=== PATIENT | female | born 1985 | race Caucasian/White ===

== ENCOUNTER 2018-08-02 10:38 | Observation (INO) | payer BC ==
[2018-08-02] MEDS ORDERED: ONDANSETRON 4 MG/2 ML VIAL IVP STA (11:10)
[2018-08-02] MEDS ORDERED: MORPHINE SULFATE 4 MG/ML SYRINGE IV STA (11:10)
[2018-08-02] MEDS ORDERED: KETOROLAC 30 MG/ML 1 ML VIAL IVP STA (11:10)
[2018-08-02] MEDS ORDERED: SODIUM CHLORIDE 0.9% 1,000 ML IV STA (11:10)
[2018-08-02] MEDS ORDERED: SODIUM CHLORIDE 0.9% 2,000 ML IV STA (11:10)
--- NOTE | 2018-08-02 11:15 | ED ---
Nausea/Vomiting/Diarrhea HPI - General Chief complaint: Nausea/Vomiting/Diarrhea Stated complaint: NVD X 3 DAYS, KIDNEY PAIN Time Seen by Provider: 08/02/18 10:56 Source: patient, RN notes reviewed, old records reviewed Mode of arrival: ambulatory Limitations: no limitations - History of Present Illness Initial comments: 33-year-old female presents emergency department today for evaluation for nausea vomiting and diarrhea for the past 3 days. Patient states that she is only been able to tolerate approximately 20 ounce glass of water in the past 3 days. Today she complained of a significant headache, and also had an episode of syncope. Patient states that she had no significant head injuries related to her syncopal episode. She was on the ground for approximately 30 seconds. Patient states that she has some lower abdominal pain as well as some right flank pain. Surgical history includes gastric sleeve procedure, and C-sections. Patient states that she's had no associated chest pain or shortness of breath. Patient reports that her children have also had a viral gastroenteritis illness for the past week but their symptoms resolved in 12 hours. Denies any upper respiratory symptoms. - Related Data Home Medications Medication Instructions Recorded Confirmed Escitalopram [Lexapro] 20 mg PO DAILY 08/02/18 08/02/18 Omeprazole 40 mg PO DAILY 08/02/18 08/02/18 buPROPion HCL [Wellbutrin XL] 150 mg PO DAILY 08/02/18 08/02/18 Allergies Allergy/AdvReac Type Severity Reaction Status Date / Time No Known Allergies Allergy Verified 08/02/18 14:18 Review of Systems ROS Statement: Those systems with pertinent positive or pertinent negative responses have been documented in the HPI. ROS Other: All systems not noted in ROS Statement are negative. Past Medical History Past Medical History: Asthma Additional Past Medical History / Comment(s): migraines, (no problems with asthma since [facility] in 2001) History of Any Multi-Drug Resistant Organisms: None Reported Past Surgical History: Adenoidectomy, Bariatric Surgery, Cholecystectomy, Orthopedic Surgery, Tonsillectomy, Tubal Ligation Additional Past Surgical History / Comment(s): left knee arthroscopy, rectal vaginal fistula repair, spincteroplasty, lap band inserted in 2007 and removed in Mar 2015 when gastric sleeve performed Past Anesthesia/Blood Transfusion Reactions: Family History of Problems w/ Anesthesia Additional Past Anesthesia/Blood Transfusion Reaction / Comment(s): father and sister-diff coming out and high fever Past Psychological History: Anxiety, Depression Smoking Status: Current every day smoker Past Alcohol Use History: Occasional Past Drug Use History: None Reported - Past Family History Mother Family Medical History: No Reported History General Exam - General Exam Comments Initial Comments: Patient is a 33-year-old female. Patient appears in moderate discomfort. Limitations: no limitations General appearance: alert, in no apparent distress Head exam: Present: atraumatic, normocephalic, normal inspection Eye exam: Present: normal appearance, PERRL, EOMI. Absent: scleral icterus, conjunctival injection, periorbital swelling ENT exam: Present: normal exam, mucous membranes moist Neck exam: Present: normal inspection. Absent: tenderness, meningismus, lymphadenopathy Respiratory exam: Present: normal lung sounds bilaterally. Absent: respiratory distress, wheezes, rales, rhonchi, stridor Cardiovascular Exam: Present: regular rate, normal rhythm, normal heart sounds. Absent: systolic murmur, diastolic murmur, rubs, gallop, clicks GI/Abdominal exam: Present: soft, normal bowel sounds. Absent: distended, tenderness, guarding, rebound, rigid Extremities exam: Present: normal inspection, full ROM, normal capillary refill. Absent: tenderness, pedal edema, joint swelling, calf tenderness Back exam: Present: normal inspection Neurological exam: Present: alert, oriented X3, CN II-XII intact Psychiatric exam: Present: normal affect, normal mood Skin exam: Present: warm, dry, intact, normal color. Absent: rash Course Vital Signs 08/02/18 08/02/18 08/02/18 10:46 11:57 12:00 Temperature 98.5 F Pulse Rate 79 82 94 Respiratory 18 10 L 16 Rate Blood Pressure 100/61 135/79 135/79 O2 Sat by Pulse 99 100 100 Oximetry 08/02/18 08/02/18 12:30 13:30 Temperature Pulse Rate 105 H 101 H Respiratory 17 18 Rate Blood Pressure 129/78 123/81 O2 Sat by Pulse 100 100 Oximetry - Reevaluation(s) Reevaluation #1: 08/02/18 13:30 Patient returned from chest x-ray after receiving IV morphine and she started complaining of some chest pain. Stat EKG was completed. There is some evidence of increased inferior T-wave inversion. Reevaluation #2: 08/02/18 13:31 Repeat EKG at 1235 showed sinus rhythm with T-wave abnormality considering inferior ischemia. Ventricular rate of 86 bpm. Was 136 most seconds. QRS ration 70 ms. QT QTc is 386/461 ms. Reevaluation #3: 08/02/18 14:33 is reevaluated this time, states that her chest and is diminishing. She denies any significant abdominal pain at this time. I discussed that the concern for EKG changes and her positive family history would like to admit the Patient for cardiac rule out. Her vomiting and diarrhea are likely gastroenteritis. Medical Decision Making - Medical Decision Making Patient is a 33-year-old female presents emergency department today for evaluation of nausea vomiting and diarrhea for the past 3 days. She states she feels extremely dehydrated, and had a syncopal episode today. On initial evaluation she denies any significant chest pain. Blood work was initially given 2 L bolus. She was given morphine for lower abdominal pain and Toradol. After she went to x-ray she started complaining of some sharp chest pain reading a 9 out of 10. A stat EKG was ordered did show some evidence of increased inferior lead T-wave inversions. Due to the syncopal episode initial troponin was drawn on her first lab draw on this is negative. While immersed her and she states that the chest pains keeps diminishing but she still complains of some muscle spasms and backaches. As well as nausea. I discussed we can admit the Patient for cardiac rule out due to continued chest pain and positive family history. Patient agrees to this. Chest x-ray was normal. KUB shows evidence of ileus or gastroenteritis. Patient informed about his results and agrees to admission. Discussed this with Dr. Torres did discuss the case with Dr. Guillory. - Lab Data Result diagrams: 08/02/18 11:56 08/02/18 11:56 Lab Results 08/02/18 08/02/18 08/02/18 Range/Units 11:56 11:56 11:56 WBC 4.1 (3.8-10.6) k/uL RBC 4.86 (3.80-5.40) m/uL Hgb 14.1 (11.4-16.0) gm/dL Hct 43.5 (34.0-46.0) % MCV 89.7 (80.0-100.0) fL MCH 29.0 (25.0-35.0) pg MCHC 32.4 (31.0-37.0) g/dL RDW 13.1 (11.5-15.5) % Plt Count 245 (150-450) k/uL Neutrophils % 77 % Lymphocytes % 13 % Monocytes % 6 % Eosinophils % 1 % Basophils % 0 % Neutrophils # 3.1 (1.3-7.7) k/uL Lymphocytes # 0.5 L (1.0-4.8) k/uL Monocytes # 0.3 (0-1.0) k/uL Eosinophils # 0.0 (0-0.7) k/uL Basophils # 0.0 (0-0.2) k/uL PT 10.5 (9.0-12.0) sec INR 1.0 (<1.2) APTT 22.2 (22.0-30.0) sec Sodium 139 (137-145) mmol/L Potassium 3.5 (3.5-5.1) mmol/L Chloride 105 (98-107) mmol/L Carbon Dioxide 26 (22-30) mmol/L Anion Gap 8 mmol/L BUN 10 (7-17) mg/dL Creatinine 0.61 (0.52-1.04) mg/dL Est GFR (CKD-EPI)AfAm >90 (>60 ml/min/1.73 sqM) Est GFR (CKD-EPI)NonAf >90 (>60 ml/min/1.73 sqM) Glucose 94 (74-99) mg/dL Calcium 9.1 (8.4-10.2) mg/dL Total Bilirubin 0.6 (0.2-1.3) mg/dL AST 24 (14-36) U/L ALT 19 (9-52) U/L Alkaline Phosphatase 66 (38-126) U/L Troponin I (0.000-0.034) ng/mL Total Protein 7.3 (6.3-8.2) g/dL Albumin 4.5 (3.5-5.0) g/dL Amylase 44 (30-110) U/L Lipase 116 (23-300) U/L Urine Color Urine Appearance (Clear) Urine pH (5.0-8.0) Ur Specific [place] (1.001-1.035) Urine Protein (Negative) Urine Glucose (UA) (Negative) Urine Ketones (Negative) Urine Blood (Negative) Urine Nitrite (Negative) Urine Bilirubin (Negative) Urine Urobilinogen (<2.0) mg/dL Ur Leukocyte Esterase (Negative) Urine RBC (0-5) /hpf Urine WBC (0-5) /hpf Ur Squamous Epith Cells (0-4) /hpf Urine Bacteria (None) /hpf Urine Mucus (None) /hpf Urine HCG, Qual (Not Detectd) 08/02/18 08/02/18 08/02/18 Range/Units 11:56 13:25 13:25 WBC (3.8-10.6) k/uL RBC (3.80-5.40) m/uL Hgb (11.4-16.0) gm/dL Hct (34.0-46.0) % MCV (80.0-100.0) fL MCH (25.0-35.0) pg MCHC (31.0-37.0) g/dL RDW (11.5-15.5) % Plt Count (150-450) k/uL Neutrophils % % Lymphocytes % % Monocytes % % Eosinophils % % Basophils % % Neutrophils # (1.3-7.7) k/uL Lymphocytes # (1.0-4.8) k/uL Monocytes # (0-1.0) k/uL Eosinophils # (0-0.7) k/uL Basophils # (0-0.2) k/uL PT (9.0-12.0) sec INR (<1.2) APTT (22.0-30.0) sec Sodium (137-145) mmol/L Potassium (3.5-5.1) mmol/L Chloride (98-107) mmol/L Carbon Dioxide (22-30) mmol/L Anion Gap mmol/L BUN (7-17) mg/dL Creatinine (0.52-1.04) mg/dL Est GFR (CKD-EPI)AfAm (>60 ml/min/1.73 sqM) Est GFR (CKD-EPI)NonAf (>60 ml/min/1.73 sqM) Glucose (74-99) mg/dL Calcium (8.4-10.2) mg/dL Total Bilirubin (0.2-1.3) mg/dL AST (14-36) U/L ALT (9-52) U/L Alkaline Phosphatase (38-126) U/L Troponin I <0.012 (0.000-0.034) ng/mL Total Protein (6.3-8.2) g/dL Albumin (3.5-5.0) g/dL Amylase (30-110) U/L Lipase (23-300) U/L Urine Color Yellow Urine Appearance Cloudy H (Clear) Urine pH 6.0 (5.0-8.0) Ur Specific [place] 1.033 (1.001-1.035) Urine Protein 2+ H (Negative) Urine Glucose (UA) Negative (Negative) Urine Ketones 2+ H (Negative) Urine Blood Negative (Negative) Urine Nitrite Negative (Negative) Urine Bilirubin Negative (Negative) Urine Urobilinogen 2.0 (<2.0) mg/dL Ur Leukocyte Esterase Negative (Negative) Urine RBC 1 (0-5) /hpf Urine WBC 11 H (0-5) /hpf Ur Squamous Epith Cells 23 H (0-4) /hpf Urine Bacteria Few H (None) /hpf Urine Mucus Many H (None) /hpf Urine HCG, Qual Not Detected (Not Detectd) - Radiology Data Radiology results: report reviewed Normal chest x-ray. KUB x-ray shows findings most consistent with ileus. Disposition Clinical Impression: Gastroenteritis, Chest pain, Acute electrocardiogram changes, Dehydration Disposition: ADMITTED IP TO THIS HOSP Condition: Stable Is patient prescribed a controlled substance at d/c from ED?: No Referrals: Bro Rodriguez DO [Primary Care Provider] - 1-2 days Time of Disposition: 14:35
[2018-08-02 12:06] LABS: Basophils % (A) 0 %; Eosinophils % (A) 1 %; HCT 43.5 % (34.0-46.0); HGB 14.1 gm/dL (11.4-16.0); Lymphocytes # (A) 0.5 k/uL (1.0-4.8); Lymphocytes % (A) 13 %; MCHC 32.4 g/dL (31.0-37.0); MCV 89.7 fL (80.0-100.0); Mean Platelet Volume 6.4; Monocytes # (A) 0.3 k/uL (0-1.0); Monocytes % (A) 6 %; Neutrophils # (A) 3.1 k/uL (1.3-7.7); Neutrophils % (A) 77 %; Platelet Count 245 k/uL (150-450); RBC 4.86 m/uL (3.80-5.40); RDW 13.1 % (11.5-15.5); WBC 4.1 k/uL (3.8-10.6)
[2018-08-02 12:14] LABS: Partial Thromboplastin Time 22.2 sec (22.0-30.0); Prothrombin Time 10.5 sec (9.0-12.0)
[2018-08-02 12:16] LABS: ALT 19 U/L (9-52); AST 24 U/L (14-36); African American GFR (CKD) >90 (>60 ml/min/1.73 sqM); Albumin 4.5 g/dL (3.5-5.0); Alkaline Phosphatase 66 U/L (38-126); Amylase 44 U/L (30-110); Anion Gap 8 mmol/L; Blood Urea Nitrogen 10 mg/dL (7-17); Calcium 9.1 mg/dL (8.4-10.2); Carbon Dioxide 26 mmol/L (22-30); Chloride 105 mmol/L (98-107); Glucose 94 mg/dL (74-99); Lipase 116 U/L (23-300); Potassium 3.5 mmol/L (3.5-5.1); Sodium 139 mmol/L (137-145); Total Bilirubin 0.6 mg/dL (0.2-1.3); Total Protein 7.3 g/dL (6.3-8.2)
--- NOTE | 2018-08-02 12:30 | XR ---
EXAMINATION TYPE: XR chest 2V DATE OF EXAM ORDERED: 08/02/2018 HISTORY: abdominal pain. REFERENCE: None. FINDINGS: The lungs are clear. Pleural spaces are clear. Heart size is normal. IMPRESSION: NORMAL CHEST.
--- NOTE | 2018-08-02 12:31 | XR ---
EXAMINATION TYPE: XR KUB , 2 VIEWS DATE OF EXAM ORDERED: 08/02/2018 HISTORY: abdominal pain. COMPARISON: None. FINDINGS: The lung bases are clear. The abdominal gas pattern shows no evidence of obstruction. No free air is seen. There are numerous a ir-fluid levels within the colon. There also some air-fluid levels within the small bowel. No unusual calcifications are seen. IMPRESSION: FINDINGS MOST CONSISTENT WITH ILEUS.
[2018-08-02] MEDS ORDERED: ASPIRIN 325 MG TAB PO STA (12:37)
[2018-08-02 14:04] LABS: Appearance,Urine Cloudy (Clear); Bacteria,Urine Few /hpf; Bilirubin,Urine Negative (Negative); Blood,Urine Negative (Negative); Color,Urine Yellow; Glucose,Urine (UA) Negative (Negative); Ketones,Urine 2+ (Negative); Leukocyte Esterase,Urine Negative (Negative); Mucus,Urine Many /hpf; Nitrite,Urine Negative (Negative); Protein,Urine 2+ (Negative); RBC,Urine 1 /hpf (0-5); Specific Gravity,Urine 1.033 (1.001-1.035); Squamous Epithelial Cell,Urine 23 /hpf (0-4); WBC,Urine 11 /hpf (0-5)
[2018-08-02] MEDS ORDERED: NITROGLYCERIN SL TABS 0.4 MG TAB SUBLINGUAL PRN (14:36)
[2018-08-02] MEDS ORDERED: ONDANSETRON 4 MG/2 ML VIAL IVP PRN (15:54)
[2018-08-02] MEDS: FAMOTIDINE 20 MG/2 ML VIAL IV SCH ×2 (16:05→20:14)
[2018-08-02] MEDS: MORPHINE SULFATE 4 MG/ML SYRINGE IV PRN (20:21)
[2018-08-03 00:35] LABS: Cholesterol 123 mg/dL (<200); HDL Cholesterol 60 mg/dL (40-60); LDL Cholesterol,Calculated 50 mg/dL (0-99); Triglycerides 67 mg/dL (<150)
--- NOTE | 2018-08-03 00:58 | P.HPIM ---
History of Present Illness H&P Date: 08/02/18 Chief Complaint: Nausea vomiting and diarrhea Patient is a 33-year-old female with a known history of migraine headache and history of lap band surgery and removal, gastric sleeve surgery in 2016 came to ER with complaints of nausea vomiting and diarrhea for the past 3 days. Patient is unable to tolerate oral diet and is about to pass out today. Denied any complaints of headache. Denied any hitting her head on the ground. Patient also has been having lower abdominal pain. Denied any dysuria or hematuria. No fever no chills. No recent illnesses. Patient did complain of chest tightness while in the ER. No associated shortness of breath. No radiation of the pain. Patient was given a dose of aspirin and nitroglycerin in the ER which seems to improve her symptoms. Patient says that she has a family history of coronary disease in both parents. Patient says that her children did have gastroenteritis a few days back and their symptoms resolved within 12 hours. Chest x-ray negative KUB x-ray consistent with mild ileus. EKG showed normal sinus rhythm with T-wave inversions, consider inferior wall ischemia. TSH within normal limits. Troponin 3 negative. Review of Systems Constitutional: Patient denies any fever or chills . No generalized weakness or weight loss. Abdomen: Nausea vomiting and abdominal pain and diarrhea. Cardiovascular: Patient denies any chest pain or short of breath no palpitations . Respiratory: patient denied any cough is from production. No shortness of breath Neurologic: Patient denied any numbness or tingling headache. Musculoskeletal: Patient denies any complaints of joint swelling or deformity. Skin: Negative Psychiatric: Negative Endocrine: No heat or cold intolerance. No recent weight gain. Genitourinary: No dysuria or hematuria. All other 14 point ROS negative except the above Past Medical History Past Medical History: Asthma Additional Past Medical History / Comment(s): migraines, (no problems with asthma since highschool in 2001) History of Any Multi-Drug Resistant Organisms: None Reported Past Surgical History: Adenoidectomy, Bariatric Surgery, Cholecystectomy, Orthopedic Surgery, Tonsillectomy, Tubal Ligation Additional Past Surgical History / Comment(s): left knee arthroscopy, rectal vaginal fistula repair, spincteroplasty, lap band inserted in 2007 and removed in Mar 2015 when gastric sleeve performed Past Anesthesia/Blood Transfusion Reactions: Family History of Problems w/ Anesthesia Additional Past Anesthesia/Blood Transfusion Reaction / Comment(s): father and sister-diff coming out and high fever Past Psychological History: Anxiety, Depression Smoking Status: Never smoker Past Alcohol Use History: Occasional Additional Past Alcohol Use History / Comment(s): quit smoking 10/2013, smoked for 13 yrs, < 1/2 PPD Past Drug Use History: None Reported - Past Family History Mother Family Medical History: No Reported History Medications and Allergies Home Medications Medication Instructions Recorded Confirmed Type Escitalopram [Lexapro] 20 mg PO DAILY 08/02/18 08/02/18 History Omeprazole 40 mg PO DAILY 08/02/18 08/02/18 History buPROPion HCL [Wellbutrin XL] 150 mg PO DAILY 08/02/18 08/02/18 History Allergies Allergy/AdvReac Type Severity Reaction Status Date / Time No Known Allergies Allergy Verified 08/02/18 14:18 Physical Exam Vitals: Vital Signs Temp Pulse Pulse Pulse Pulse Resp BP 08/02/18 19:19 98.6 F 71 15 08/02/18 16:14 08/02/18 15:05 98.4 F 77 79 82 16 08/02/18 14:30 87 18 115/65 08/02/18 14:00 93 18 114/70 08/02/18 13:30 101 H 18 123/81 08/02/18 12:30 105 H 17 129/78 08/02/18 12:00 94 16 135/79 08/02/18 11:57 82 10 L 135/79 08/02/18 10:46 98.5 F 79 18 100/61 BP BP BP Pulse Ox 08/02/18 19:19 102/64 98 08/02/18 16:14 100 08/02/18 15:05 111/67 106/69 106/64 99 08/02/18 14:30 08/02/18 14:00 08/02/18 13:30 100 08/02/18 12:30 100 08/02/18 12:00 100 08/02/18 11:57 100 08/02/18 10:46 99 Intake and Output 08/02/18 08/02/18 08/02/18 06:59 14:59 22:59 Other: Voiding Method Toilet Weight 81.647 kg PHYSICAL EXAMINATION: Patient is lying in the bed comfortably, no acute distress, awake alert and oriented.. HEENT: Normocephalic. Neck is supple. Pupils reactive. Nostrils clear. Oral cavity is moist. Ears reveal no drainage. Neck reveals no JVD, carotid bruits, or thyromegaly. CHEST EXAMINATION: Trachea is central. Symmetrical expansion. Lung hall clear to auscultation and percussion. CARDIAC: Normal S1, S2 with no gallops. No murmurs ABDOMEN: Soft. Bowel sounds normal. No organomegaly. No abdominal bruits. Extremities: reveal no edema. No clubbing or cyanosis Neurologically awake, alert, oriented x3 with well-coordinated movements. No focal deficits noted Skin: No rash or skin lesions. Psychiatric: Coperative. Nonsuicidal Musculoskeletal: No joint swelling or deformity. Normal range of motion. Results CBC & Chem 7: 08/02/18 11:56 08/02/18 11:56 Labs: Abnormal Lab Results - Last 24 Hours (Table) 08/02/18 08/02/18 Range/Units 11:56 13:25 Lymphocytes # 0.5 L (1.0-4.8) k/uL Urine Appearance Cloudy H (Clear) Urine Protein 2+ H (Negative) Urine Ketones 2+ H (Negative) Urine WBC 11 H (0-5) /hpf Ur Squamous Epith Cells 23 H (0-4) /hpf Urine Bacteria Few H (None) /hpf Urine Mucus Many H (None) /hpf Thrombosis Risk Factor Assmnt - DVT/VTE Prophylaxis DVT/VTE Prophylaxis: Pharmacologic Prophylaxis ordered - Choose All That Apply Any of the Below Risk Factors Present?: No Other Risk Factors: No Thrombosis Risk Factor Assessment Level: Very Low Risk Assessment and Plan Assessment: Intractable nausea vomiting and diarrhea likely due to viral gastroenteritis Chest pain possible GI related. Rule out ACS Family history of coronary disease Migraine headache anxiety/depression History of gastric sleeve surgery. Previous history of smoking DVT prophylaxis Plan: Patient will be continued on IV hydration and symptomatic management for nausea and vomiting. Pepcid 20 mg IV twice a day. Due to T-wave inversions and family history of coronary artery disease, cardiology was consulted for further evaluation. Continue to follow closely. Time with Patient: Greater than 30
[2018-08-03] MEDS: SODIUM CHLORIDE 0.9% 1,000 ML IV SCH ×2 (05:26→19:41)
--- NOTE | 2018-08-03 07:16 | P.CRDCN ---
History of Present Illness Consult date: 08/03/18 Consult reason: chest pain History of present illness: This is a 33-year-old female with past medical history of asthma, migraines, lap band status post removal and subsequent gastric sleeve. Patient gives history of having nausea vomiting diarrhea for the past 3 or more days as well as headache, right flank pain and a syncopal episode yesterday. Her own children have had gastroenteritis lasting for about 12 hours and resolving. Patient states she did have episode of chest pain in the middle of her lower sternum area that happened last night and again this morning briefly she denies any at this time. It does not hurt when she takes a deep breath. Patient denies any injury when she had her syncopal episode. Patient came into [facility] emergency center for evaluation and vital signs were stable, orthostatic vital signs negative. Troponin negative on 3 draws, TSH 1.550. Chest x-ray was normal. KUB was consistent with ileus. CBC and comprehensive metabolic panel within normal limits. Urinalysis negative for an infection. EKG reveals a sinus rhythm with T-wave inversions in the anterior leads rule out ischemia. Patient states that she is feeling much improved this morning. She has not had diarrhea since yesterday and nausea and vomiting have resolved. She currently does not have any chest pain. Review Of Systems: Constitutional: No fever, no chills, no night sweats. No weight change. No weakness, fatigue or lethargy. No daytime sleepiness. EENT: Reports headache. No blurred vision or double vision, no loss of vision. No loss of Hearing, no ringing in the ears, no dizziness. No nasal drainage or congestion. No epistaxis. No sore throat. Lungs: No shortness of breath, cough, no sputum production. No wheezing. Cardiovascular: Reports chest pain-resolved, no lower extremity edema. No palpitations. No paroxysmal nocturnal dyspnea. No orthopnea. No lightheadedness or dizziness. Reports 1 syncopal episodes. Abdominal: No abdominal pain. Reports nausea, reports vomiting. Reports diarrhea. No constipation. No bloody or tarry stools. No loss of appetite. Genitourinary: No dysuria, increased frequency, urgency. No urinary retention. Musculoskeletal: No myalgias. No muscle weakness, no gait dysfunction, no frequent falls. No back pain. No neck pain. Integumentary: No wounds, no lesions. No rash or pruritus. No unusual bruising. No change in hair or nails. Neurologic: No aphasia. No facial droop. No change in mentation. No head injury. No headache. No paralysis. No paresthesia. Psychiatric: No depression. No anxiety. No mood swings. Endocrine: No abnormal blood sugars. Past Medical History Past Medical History: Asthma Additional Past Medical History / Comment(s): migraines, (no problems with asthma since [facility] in 2001) History of Any Multi-Drug Resistant Organisms: None Reported Past Surgical History: Adenoidectomy, Bariatric Surgery, Cholecystectomy, Orthopedic Surgery, Tonsillectomy, Tubal Ligation Additional Past Surgical History / Comment(s): left knee arthroscopy, rectal vaginal fistula repair, spincteroplasty, lap band inserted in 2007 and removed in Mar 2015 when gastric sleeve performed Past Anesthesia/Blood Transfusion Reactions: Family History of Problems w/ Anesthesia Additional Past Anesthesia/Blood Transfusion Reaction / Comment(s): father and sister-diff coming out and high fever Past Psychological History: Anxiety, Depression Smoking Status: Never smoker Past Alcohol Use History: Occasional Additional Past Alcohol Use History / Comment(s): quit smoking 10/2013, smoked for 13 yrs, < 1/2 PPD Past Drug Use History: None Reported - Past Family History Mother Family Medical History: No Reported History Additional Family Medical History / Comment(s): Mother has history of hypertension. Father Additional Family Medical History / Comment(s): Father has history of coronary artery disease status post CABG and TN involving the LAD in his 50s. Medications and Allergies Home Medications Medication Instructions Recorded Confirmed Type Escitalopram [Lexapro] 20 mg PO DAILY 08/02/18 08/02/18 History Omeprazole 40 mg PO DAILY 08/02/18 08/02/18 History buPROPion HCL [Wellbutrin XL] 150 mg PO DAILY 08/02/18 08/02/18 History Allergies Allergy/AdvReac Type Severity Reaction Status Date / Time No Known Allergies Allergy Verified 08/02/18 14:18 Physical Exam Vitals: Vital Signs Temp Pulse Pulse Pulse Pulse Resp BP 08/03/18 04:00 98.3 F 73 14 08/02/18 23:35 97.4 F L 72 14 08/02/18 19:19 98.6 F 71 15 08/02/18 16:14 08/02/18 15:05 98.4 F 77 79 82 16 08/02/18 14:30 87 18 115/65 08/02/18 14:00 93 18 114/70 08/02/18 13:30 101 H 18 123/81 08/02/18 12:30 105 H 17 129/78 08/02/18 12:00 94 16 135/79 08/02/18 11:57 82 10 L 135/79 08/02/18 10:46 98.5 F 79 18 100/61 BP BP BP Pulse Ox 08/03/18 04:00 112/70 99 08/02/18 23:35 98/59 99 08/02/18 19:19 102/64 98 08/02/18 16:14 100 08/02/18 15:05 111/67 106/69 106/64 99 08/02/18 14:30 08/02/18 14:00 08/02/18 13:30 100 08/02/18 12:30 100 08/02/18 12:00 100 08/02/18 11:57 100 08/02/18 10:46 99 Intake and Output 08/02/18 08/03/18 08/03/18 22:59 06:59 14:59 Other: Voiding Method Toilet Toilet # Voids 1 1 Gen: This is a 33-year-old female. Patient is resting in bed and appears to be comfortable and in no acute distress. HEENT: Head is atraumatic, normocephalic. Pupils equal, round. Sclerae is anicteric. Oral mucous membranes are moist. NECK: Supple. No JVD. No lymphadenopathy. No thyromegaly. LUNGS: Clear to auscultation. No wheezes or rhonchi. No intercostal retractions. HEART: Regular rate and rhythm. No murmur. ABDOMEN: Soft. Bowel sounds are present. No masses. No tenderness. EXTREMITIES: No pedal edema. No calf tenderness. Dorsalis pedis +2 bilaterally. NEUROLOGICAL: Patient is awake, alert and oriented x3. Cranial nerves 2 through 12 are grossly intact. Results 08/02/18 11:56 08/02/18 11:56 Cardiac Enzymes 08/02/18 08/02/18 08/02/18 Range/Units 11:56 11:56 18:28 AST 24 (14-36) U/L Troponin I <0.012 <0.012 (0.000-0.034) ng/mL 08/02/18 Range/Units 23:45 AST (14-36) U/L Troponin I <0.012 (0.000-0.034) ng/mL Coagulation 08/02/18 Range/Units 11:56 PT 10.5 (9.0-12.0) sec APTT 22.2 (22.0-30.0) sec Lipids 08/02/18 Range/Units 11:56 Triglycerides 67 (<150) mg/dL Cholesterol 123 (<200) mg/dL HDL Cholesterol 60 (40-60) mg/dL CBC 08/02/18 Range/Units 11:56 WBC 4.1 (3.8-10.6) k/uL RBC 4.86 (3.80-5.40) m/uL Hgb 14.1 (11.4-16.0) gm/dL Hct 43.5 (34.0-46.0) % Plt Count 245 (150-450) k/uL Comprehensive Metabolic Panel 08/02/18 Range/Units 11:56 Sodium 139 (137-145) mmol/L Potassium 3.5 (3.5-5.1) mmol/L Chloride 105 (98-107) mmol/L Carbon Dioxide 26 (22-30) mmol/L BUN 10 (7-17) mg/dL Creatinine 0.61 (0.52-1.04) mg/dL Glucose 94 (74-99) mg/dL Calcium 9.1 (8.4-10.2) mg/dL AST 24 (14-36) U/L ALT 19 (9-52) U/L Alkaline Phosphatase 66 (38-126) U/L Total Protein 7.3 (6.3-8.2) g/dL Albumin 4.5 (3.5-5.0) g/dL Current Medications Generic Name Dose Route Start Last Admin Trade Name Freq PRN Reason Stop Dose Admin Aspirin 325 mg 08/03/18 09:00 Aspirin PO DAILY [facility] Bupropion HCl 150 mg 08/03/18 09:00 Wellbutrin Xl PO DAILY [facility] Escitalopram Oxalate 20 mg 08/03/18 09:00 Lexapro PO DAILY CARIE Famotidine 20 mg 06/15/19 16:00 08/02/18 20:14 Pepcid IV 20 mg Q12HR CARIE Administration Sodium Chloride 1,000 mls @ 100 mls/hr 08/03/18 01:00 08/03/18 05:26 Saline 0.9% IV Not Given .Q10H CARIE Morphine Sulfate 4 mg 08/02/18 14:36 08/02/18 20:21 Morphine Sulfate (Inj) IV 4 mg Q5M PRN Administration Chest Pain Nitroglycerin 0.4 mg 08/02/18 14:36 Nitrostat SUBLINGUAL Q5M PRN Chest Pain Ondansetron HCl 4 mg 08/02/18 15:54 Zofran IVP Q6HR PRN Nausea And Vomiting Pantoprazole Sodium 40 mg 08/03/18 07:30 Protonix PO AC-BRKFST CARIE Intake and Output 08/02/18 08/03/18 08/03/18 22:59 06:59 14:59 Other: Voiding Method Toilet Toilet # Voids 1 1 08/02/18 11:56 08/02/18 11:56 Assessment and Plan Plan: 1. Chest pain with normal troponins. Acute coronary syndrome ruled out. Obtain 2-D echocardiogram and Doppler study to assess cardiac structure and function. Stress echocardiogram for Saturday. 2. Syncopal episode most likely secondary to gastroenteritis. Orthostatic vital signs normal. 3. Nausea vomiting diarrhea secondary to viral gastroenteritis. 4. Remote history of asthma not active. 5. Migraines. 6. Remote history of tobacco use.. Nurse practitioner note has been reviewed, I agree with documented findings and plan of care. Patient was seen and examined.
[2018-08-03] MEDS: buPROPion XL 150 MG TAB.ER.24H PO SCH (09:38)
[2018-08-03] MEDS: ASPIRIN 325 MG TAB PO SCH (09:38)
[2018-08-03] MEDS: ESCITALOPRAM 20 MG TAB PO SCH (09:38)
[2018-08-03] MEDS: PANTOPRAZOLE 40 MG TABLET PO SCH (09:38)
[2018-08-03] MEDS: FAMOTIDINE 20 MG/2 ML VIAL IV SCH ×2 (09:38→20:11)
[2018-08-03] MEDS: MORPHINE SULFATE 4 MG/ML SYRINGE IV PRN (20:10)
[2018-08-04 07:12] VITALS: RESP 16
[2018-08-04] MEDS: PANTOPRAZOLE 40 MG TABLET PO SCH (09:05)
[2018-08-04] MEDS: FAMOTIDINE 20 MG/2 ML VIAL IV SCH (09:05)
[2018-08-04] MEDS: ASPIRIN 325 MG TAB PO SCH (09:05)
--- NOTE | 2018-08-04 09:27 | P.PN ---
Subjective This is a pleasant 33-year-old female past medical history significant for asthma, migraines and bariatric surgery. She denies history of coronary artery disease, hypertension, dyslipidemia or diabetes mellitus. She is seen and examined sitting up in no acute distress. She denies any further symptoms of chest discomfort or dizziness. She has had no further syncopal episodes. She also is feeling better with nausea, vomiting and diarrhea. She states she exercises daily and denies having symptoms of exertional chest discomfort typically. Blood pressure 93/57 heart rate 72 afebrile maintaining oxygen saturation on room air. GENERAL: Well-appearing, well-nourished and in no acute distress. NECK: Supple without JVD or thyromegaly. LUNGS: Breath sounds clear to auscultation bilaterally. Respiration equal and unlabored. No wheezes, rales or rhonchi. HEART: Regular rate and rhythm without murmurs, rubs or gallops. S1 and S2 heard. EXTREMITIES: Normal range of motion, no edema. No clubbing or cyanosis. Peripheral pulses intact. ASSESSMENT Chest pain, atypical for angina. Acute coronary event has been ruled out. Syncopal episode, most likely secondary to gastroenteritis Viral gastroenteritis with associated nausea vomiting and diarrhea PLAN Proceed with stress echocardiogram as ordered. If normal she can be discharged f rom a cardiac perspective. Nurse Practitioner note has been reviewed, I agree with a documented findings and plan of care. Patient was seen and examined. Objective - Vital Signs Vital signs: Vital Signs Temp 98 F 08/04/18 07:10 Pulse 72 08/04/18 07:10 Resp 16 08/04/18 07:10 BP 93/57 08/04/18 07:10 Pulse Ox 100 08/04/18 07:10 Intake & Output 08/03/18 08/04/18 08/04/18 18:59 06:59 18:59 Intake Total 1280 Balance 1280 Intake: Intake, IV Titration 800 Amount Sodium Chloride 0.9% 1, 800 000 ml @ 100 mls/hr IV . Q10H CARIE Rx#:[id number] Oral 480 Other: Voiding Method Toilet Toilet # Voids 1 - Labs CBC & Chem 7: 08/02/18 11:56 08/02/18 11:56
[2018-08-04] MEDS: buPROPion XL 150 MG TAB.ER.24H PO SCH (11:12)
[2018-08-04] MEDS: ESCITALOPRAM 20 MG TAB PO SCH (11:12)
[2018-08-04] MEDS: SODIUM CHLORIDE 0.9% 1,000 ML IV SCH (11:23)
--- NOTE | 2018-08-04 11:49 | ECHOF ---
Referral Reason:Chest pain and cardiomyopathy MEASUREMENTS -------- HEIGHT: 162.6 cm WEIGHT: 81.7 kg BP: IVSd: 0.7 cm (0.6 - 1.1) LVIDd: 4.2 cm (3.9 - 5.3) LVPWd: 1.0 cm (0.6 - 1.1) IVSs: 1.4 cm LVIDs: 2.4 cm LVPWs: 1.5 cm LAESV Index (A-L): 22.75 ml/m Ao Diam: 3.0 cm (2.0 - 3.7) AV Cusp: 2.0 cm (1.5 - 2.6) LA Diam: 2.5 cm (2.7 - 3.8) MV EXCURSION: 16.659 mm (> 18.000) MV EF SLOPE: 190 mm/s (70 - 150) EPSS: 1.0 cm MV E Jarrod: 1.23 m/s MV DecT: 163 ms MV A Jarrod: 0.66 m/s MV E/A Ratio: 1.88 RAP: 5.00 mmHg RVSP: 27.39 mmHg FINDINGS -------- Sinus rhythm. This was a technically good study. The left ventricular size is normal. Left ventricular wall thickness is normal. Overall left vent ricular systolic function is normal with, an EF between 55 - 60 %. The right ventricle is normal in size. The left atrial size is normal. The right atrial size is normal. Interatrial and interventricular septum intact. The aortic valve is trileaflet, and appears structurally normal. No aortic stenosis or regurgitation. The mitral valve is normal. Mild mitral regurgitation is present. Mild tricuspid regurgitation present. There is no evidence of pulmonary hypertension. The right v entricular systolic pressure, as measured by Doppler, is 27.39mmHg. There is no pulmonic regurgitation present. The aortic root size is normal. Normal inferior vena cava with normal inspiratory collapse consistent with estimated right atrial pre ssure of 5 mmHg. There is no pericardial effusion. CONCLUSIONS -------- 1. Sinus rhythm. 2. This was a technically good study. 3. The left ventricular size is normal. 4. Left ventricular wall thickness is normal. 5. Overall left ventricular systolic function is normal with, an EF between 55 - 60 %. 6. The left atrial size is normal. 7. The aortic valve is trileaflet, and appears structurally normal. No aortic stenosis or regurgitati on. 8. The mitral valve is normal. 9. Mild mitral regurgitation is present. 10. Mild tricuspid regurgitation present. 11. There is no evidence of pulmonary hypertension. 12. There is no pulmonic regurgitation present. 13. The aortic root size is normal. 14. Normal inferior vena cava with normal inspiratory collapse consistent with estimated right atrial pressure of 5 mmHg. 15. There is no pericardial effusion. [employer] POT HARDENER: Vernell Hawley RDCS
[2018-08-04 12:00] VITALS: BP 125/78; PULSE 76; TEMP 98.2
--- NOTE | 2018-08-04 12:25 | ECHOS ---
STRESS ECHOCARDIOGRAM DATE OF SERVICE: 08/04/2018 INDICATIONS: Chest pain. MEDICATIONS: BASELINE HEART RATE: 97 BASELINE BLOOD PRESSURE: 113/56 MAXIMUM HEART RATE: 173 MAXIMUM BLOOD PRESSURE: 137/45 85% MPHR: 157 100% MPHR: 185 METS: 11.3 MAXIMUM STAGE REACHED: IV TOTAL EXERCISE TIME: 9 minutes 45 seconds CLINICAL INFORMATION: Baseline rhythm is sinus mechanism, rate of 97, right axis deviation, minor nonspecific ST-T wave changes. Baseline blood pressure 113/56 mmHg. Patient exercised on Hero protocol for 9 minutes 45 seconds reaching peak rate 173 beats per minute which is equal to 93% maximum predicted heart rate. Peak blood pressure 137/45 mmHg. Test was terminated secondary to fatigued. There was not chest pain. Electrocardiograph monitoring revealed no evidence of diagnostic ischemic ST deviation. Baseline echocardiogram revealed normal wall thickening and motion. At peak exercise, there was normal wall motion augmentation with no hypokinesis or dyskinesis. CONCLUSION: 1. Average exercise tolerance with normal electrocardiograph response to exercise. 2. Normal stress echocardiogram with no evidence of stress induced ischemia. MMODL / IJN: [id number] /
== END 2018-08-04 12:24 | disposition home or self-care (01) ==
LOC: EC 10:38 → 1SOBS 14:32
PROVIDERS: ADMIT Internal Medicine; ATTEND Internal Medicine
DX: R07.89 Other chest pain (principal); A08.4 Viral intestinal infection, unspecified; E86.0 Dehydration; R94.31 Abnormal electrocardiogram [ECG] [EKG]; R55 Syncope and collapse; J45.909 Unspecified asthma, uncomplicated; G43.909 Migraine, unspecified, not intractable, without status migrainosus; F32.9 Major depressive disorder, single episode, unspecified; F41.9 Anxiety disorder, unspecified; Z79.899 Other long term (current) drug therapy; Z87.891 Personal history of nicotine dependence; Z98.84 Bariatric surgery status; Z98.51 Tubal ligation status; Z90.49 Acquired absence of other specified parts of digestive tract; Z82.49 Family history of ischemic heart disease and other diseases of the circulatory system; Z84.89 Family history of other specified conditions
CPT/HCPCS: 96375 ×2; 96376 ×3; 96361; 96374; 99285; 36415; 93005; 93306; 93351; 80061; 80053; 82150; 83690; 84443; 84484; 85025; 85610; 85730; 81001; 81025; 71046; 74018; G0378 ×3; J2270 ×2; J2405; J1885

== ENCOUNTER 2018-11-28 08:26 | Day surgery (SDC) | payer BC ==
[2018-11-26 15:13] VITALS: BMI 29.0
[~2018-11-28 08:26] MED LIST: DEXAMETHASONE SOD PHOSPHATE 10 MG/ML 1 ML VIAL IV ONE; HYDROmorphone 0.5 MG/0.5 ML SYRINGE IVP PRN; LACTATED RINGERS 1,000 ML IV SCH; LIDOCAINE 1% 20 ML VIAL (10MG/ML) FOR IV START INTRADERMA PRN; MIDAZOLAM 2 MG/2 ML VIAL IV PRN; ONDANSETRON 4 MG/2 ML VIAL IVP ONE; Pre Op ABX Message 1 EACH MISC MISCELLANE ONE; SCOPOLAMINE 1.5MG/72HR PATCH TRANSDERM ONE
[2018-11-28] MEDS ORDERED: MIDAZOLAM 2 MG/2 ML VIAL ONE (10:02)
[2018-11-28] MEDS ORDERED: KETOROLAC 30 MG/ML 1 ML VIAL ONE (10:02)
[2018-11-28] MEDS ORDERED: fentaNYL (PF) 50 MCG/ML 2 ML AMP ONE (10:02)
[2018-11-28] MEDS ORDERED: PROPOFOL 10 MG/ML 20 ML VIAL IV ONE (10:02)
[2018-11-28] MEDS ORDERED: LIDOCAINE 1% INJ 10MG/ML (20 ML MDV) ONE (10:02)
[2018-11-28] MEDS ORDERED: ONDANSETRON 4 MG/2 ML VIAL IVP PRN (11:02)
[2018-11-28] MEDS ORDERED: SIMETHICONE 80 MG CHEWABLE PO PRN (11:02)
[2018-11-28] MEDS ORDERED: METOCLOPRAMIDE 5 MG/ML 2 ML VIAL IVP PRN (11:02)
[2018-11-28] MEDS ORDERED: KETOROLAC 30 MG/ML 1 ML VIAL IVP PRN (11:02)
[2018-11-28] MEDS ORDERED: IBUPROFEN 600 MG TAB PO PRN (11:02)
[2018-11-28] MEDS ORDERED: diphenhydrAMINE 50 MG/ML 1 ML VIAL IVP PRN (11:02)
[2018-11-28] MEDS ORDERED: Acetaminophen-Codeine 300-30mg TAB PO PRN ×2 (11:02)
[2018-11-28 11:06] VITALS: TEMP 99.5
--- NOTE | 2018-11-28 11:08 | P.OP ---
Date of Procedure: 11/28/18 Preoperative Diagnosis: #1. Menorrhagia Postoperative Diagnosis: Same Procedure(s) Performed: #1. Diagnostic hysteroscopy #2. NovaSure endometrial ablation Anesthesia: other (Gen. by facemask) Surgeon: Darrell Matthews Estimated Blood Loss (ml): 5 IV fluids (ml): 400 Urine output (ml): 40 Pathology: none sent Condition: stable Disposition: PACU Operative Findings: pelvic examination demonstrated a roughly 5 week midplane to slightly anteverted mobile normal shaped uterus with normal adnexa bilaterally. Intraoperatively, the cervix was approximate 4 cm in length of the uterus sounded to approximately 9 cm in length. The bilateral tubal ostia were seen and there was very minimal shaggy tissue noted. The settings for the NovaSure tool where a length of 5.0 cm, a width of 4.1 cm for a total power 113 W. The total run time was 53 seconds after which time the base unit read "procedure complete." The postprocedural result appeared excellent. The patient is a poor candidate for vaginal hysterectomy should it become necessary. Description of Procedure: The patient was prepped and draped in usual fashion after general anesthesia was admission by the anesthesiologist. A weighted speculum was placed and the bladder draining approximate 40 mL of clear umberto urine. The anterior lip of the cervix was grasped with a single-tooth tenaculum and the uterus and cervix sounded to 9 and 4 cm respectively. Serial dilation was carried out to admit the diagnostic scope which was placed to the fundus with the findings as noted above. There was minimal shaggy tissue and no apparent pathology. The bilateral tubal ostia were seen. The scope was set aside and the NovaSure tool placed into the in vitro cavity where was opened and seated well. The settings on the tool were a length of 5.0 cm, a width of 4.1 cm for a total power 113 W. The cavity check was attempted and passed without difficulty. The tool was enabled and the run was started. After a run time of 53 seconds, the base unit read "procedure complete." The 2 was closed, removed, and discarded. The diagnostic scope was replaced into the endometrial cavity and the findings appeared excellent as noted above. All instrumentation was then removed. There was no ongoing bleeding either from the cervix or the tenaculum site. Estimated blood loss for the case was less than 5 mL. There were no complications. All sponge, instrument, and needle counts were correct. The patient tolerated the procedure well and proceeded to the recovery room in stable condition.
[2018-11-28] MEDS ORDERED: LACTATED RINGERS 1,000 ML IV SCH (11:15)
[2018-11-28] MEDS ORDERED: LACTATED RINGERS 1,000 ML IV ONE (11:30)
[2018-11-28 13:13] VITALS: RESP 18
[2018-11-28 14:10] VITALS: BP 106/60
[2018-11-28 14:11] VITALS: PULSE 88
== END 2018-11-28 14:07 | disposition home or self-care (01) ==
LOC: OR 08:26
PROVIDERS: ATTEND Obstetrics & Gynecology
DX: N92.4 Excessive bleeding in the premenopausal period (principal); F32.9 Major depressive disorder, single episode, unspecified; K21.9 Gastro-esophageal reflux disease without esophagitis; J45.909 Unspecified asthma, uncomplicated; Z98.51 Tubal ligation status; Z86.2 Personal history of diseases of the blood and blood-forming organs and certain disorders involving the immune mechanism; Z86.39 Personal history of other endocrine, nutritional and metabolic disease; Z90.89 Acquired absence of other organs; Z90.49 Acquired absence of other specified parts of digestive tract; Z98.890 Other specified postprocedural states; Z79.899 Other long term (current) drug therapy; Z87.891 Personal history of nicotine dependence; Z82.49 Family history of ischemic heart disease and other diseases of the circulatory system; Z83.3 Family history of diabetes mellitus
CPT/HCPCS: 58563; 81025; J2250; J1100; J2405; J2001; J3010; J1885; J2704; J1170

== ENCOUNTER 2020-02-29 13:37 | Emergency (ER) | payer BC ==
[2020-02-29 13:46] VITALS: TEMP 98
[2020-02-29] MEDS ORDERED: ASPIRIN 81 MG PO STA (14:13)
--- NOTE | 2020-02-29 14:24 | ED ---
Arrhythmia/Palpitations HPI - General Chief Complaint: Arrhythmia/Palpitations Stated Complaint: Chest pain Time Seen by Provider: 02/29/20 14:01 Source: patient Mode of arrival: ambulatory Limitations: no limitations - History of Present Illness Initial Comments: 34-year-old female presenting to emergency Department with a chief complaint of chest pressure and palpitations. Patient reports this occurred about one hour prior to arrival while she was at work. Patient reports she was in a sitting position when she stood up and had a sudden onset of chest palpitations along with chest pressure. She reports she obtain her blood pressure was within normal limits, however her heart rate was 1:30. Patient reports she presents proceeded to sit down and her symptoms resolved. Patient reports she attempted to walk again and had the sudden onset of symptoms again. States she did have associated shortness of breath. She denies chest pain at this time. She does report having nausea when the incident occurred along with dizziness and lightheadedness. She denies any diaphoretic episodes or vomiting. Patient does have history of depression and anxiety but denies having history of panic attacks. Patient is medicated for those. Denies history of hypertension, hyperlipidemia but does report significant cardiac disease in the family. States her sister is 39 years old and has a pacemaker. Denies any back pain abdominal pain headaches blurry vision one-sided weakness or paresthesias. - Related Data Home Medications Medication Instructions Recorded Confirmed Escitalopram [Lexapro] 20 mg PO DAILY 08/02/18 02/29/20 Omeprazole 40 mg PO DAILY 08/02/18 02/29/20 LORazepam 0.5 mg PO DAILY PRN 02/29/20 02/29/20 QUEtiapine FUMARATE [SEROquel] 50 mg PO HS 02/29/20 02/29/20 buPROPion HCL [Wellbutrin XL] 300 mg PO DAILY 02/29/20 02/29/20 Allergies Allergy/AdvReac Type Severity Reaction Status Date / Time No Known Allergies Allergy Verified 02/29/20 14:55 Review of Systems ROS Statement: Those systems with pertinent positive or pertinent negative responses have been documented in the HPI. ROS Other: All systems not noted in ROS Statement are negative. Past Medical History Past Medical History: Asthma Additional Past Medical History / Comment(s): migraines, (no problems with asthma since [facility] in 2001) History of Any Multi-Drug Resistant Organisms: None Reported Past Surgical History: Adenoidectomy, Bariatric Surgery, Cholecystectomy, Orthopedic Surgery, Tonsillectomy, Tubal Ligation Additional Past Surgical History / Comment(s): left knee arthroscopy, rectal vaginal fistula repair, spincteroplasty, lap band inserted in 2007 and removed in Mar 2015 when gastric sleeve performed Past Anesthesia/Blood Transfusion Reactions: Family History of Problems w/ Anesthesia Additional Past Anesthesia/Blood Transfusion Reaction / Comment(s): father and sister-diff coming out and high fever Past Psychological History: Anxiety, Depression Past Alcohol Use History: Occasional Past Drug Use History: None Reported - Past Family History Mother Family Medical History: No Reported History Additional Family Medical History / Comment(s): Mother has history of hypertension. Father Family Medical History: No Reported History Additional Family Medical History / Comment(s): Father has history of coronary artery disease status post CABG and [place] involving the LAD in his 50s. General Exam Limitations: no limitations General appearance: alert, in no apparent distress Head exam: Present: atraumatic, normocephalic, normal inspection Eye exam: Present: normal appearance, PERRL, EOMI Pupils: Present: normal accommodation ENT exam: Present: normal exam, normal oropharynx, mucous membranes moist, TM's normal bilaterally, normal external ear exam Neck exam: Present: normal inspection, full ROM. Absent: tenderness Respiratory exam: Present: normal lung sounds bilaterally. Absent: respiratory distress, wheezes, rales, rhonchi, stridor, chest wall tenderness Cardiovascular Exam: Present: regular rate, normal rhythm, normal heart sounds. Absent: systolic murmur, diastolic murmur GI/Abdominal exam: Present: soft. Absent: distended, tenderness, guarding, rebound Extremities exam: Present: normal inspection, full ROM, normal capillary refill, other (+2 radial and ulnar pulses bilaterally.). Absent: tenderness, pedal edema, joint swelling, calf tenderness Back exam: Present: normal inspection, full ROM. Absent: tenderness, CVA tenderness (R), CVA tenderness (L) Neurological exam: Present: alert, oriented X3 Psychiatric exam: Present: normal affect, normal mood Skin exam: Present: warm, dry, intact, normal color Course Vital Signs 02/29/20 02/29/20 02/29/20 13:39 14:30 15:00 Temperature 98.0 F Pulse Rate 103 H 74 73 Pulse Rate [ Sitting] Pulse Rate [ Standing] Pulse Rate [ Supine] Respiratory 18 18 16 Rate Blood Pressure 114/72 108/62 109/55 Blood Pressure [Sitting] Blood Pressure [Standing] Blood Pressure [Supine] O2 Sat by Pulse 100 82 L 100 Oximetry 02/29/20 02/29/20 15:30 15:45 Temperature Pulse Rate 80 Pulse Rate [ 77 Sitting] Pulse Rate [ 76 Standing] Pulse Rate [ 80 Supine] Respiratory 16 Rate Blood Pressure 103/62 Blood Pressure 109/66 [Sitting] Blood Pressure 121/67 [Standing] Blood Pressure 106/67 [Supine] O2 Sat by Pulse 97 Oximetry - Reevaluation(s) Reevaluation #1: 02/29/20 14:27 Medical records reviewed. EKG Findings - EKG Comments: EKG Findings:: Sinus rhythm. Inverted T wave in lead 3. Similar EKG to 08/02/18. Ventricular rate 82, MO 144, QRS 72, QTc 443. Medical Decision Making - Medical Decision Making 34-year-old female presenting to the emergency department with a chief complaint of heart palpitations. On physical examination, patient does appear to slightly anxious. Rest of physical examination is unremarkable. Patient had a full cardiac workup 1.5 years ago and this hospital with a negative stress test and echocardiogram. She was supposed to follow-up with a securities lending trader but never did. CBC reveals anemia with hemoglobin of 9.3. CBC unremarkable. TSH within normal limits. Coags within normal limits. Initial troponins are negative. D-dimer is negative. EKG showing inverted T waves in V3 which were also present 1.5 years ago at her last cardiac evaluation. She does not have any symptoms at this moment. Chest x-ray is unremarkable. Advised the patient to follow up with cardiology to possibly obtain a Holter monitor. She was also advised to follow with primary care regarding repeat laboratory work to monitor her hemoglobin levels. Return parameters were thoroughly discussed with patient was an ascending agreeable. Case discussed with physician. - Lab Data Result diagrams: 02/29/20 14:24 02/29/20 14:24 Lab Results 02/29/20 02/29/20 02/29/20 Range/Units 14:24 14:24 14:24 WBC 5.7 (3.8-10.6) k/uL RBC 3.99 (3.80-5.40) m/uL Hgb 9.3 L (11.4-16.0) gm/dL Hct 29.9 L (34.0-46.0) % MCV 75.0 L (80.0-100.0) fL MCH 23.4 L (25.0-35.0) pg MCHC 31.2 (31.0-37.0) g/dL RDW 14.9 (11.5-15.5) % Plt Count 292 (150-450) k/uL MPV 7.0 Neutrophils % 74 % Lymphocytes % 18 % Monocytes % 5 % Eosinophils % 2 % Basophils % 1 % Neutrophils # 4.2 (1.3-7.7) k/uL Lymphocytes # 1.0 (1.0-4.8) k/uL Monocytes # 0.3 (0-1.0) k/uL Eosinophils # 0.1 (0-0.7) k/uL Basophils # 0.0 (0-0.2) k/uL Hypochromasia Marked Microcytosis Slight PT 9.9 (9.0-12.0) sec INR 0.9 (<1.2) APTT 21.4 L (22.0-30.0) sec D-Dimer 0.26 (<0.60) mg/L FEU Sodium 138 (137-145) mmol/L Potassium 4.0 (3.5-5.1) mmol/L Chloride 107 (98-107) mmol/L Carbon Dioxide 26 (22-30) mmol/L Anion Gap 5 mmol/L BUN 12 (7-17) mg/dL Creatinine 0.67 (0.52-1.04) mg/dL Est GFR (CKD-EPI)AfAm >90 (>60 ml/min/1.73 sqM) Est GFR (CKD-EPI)NonAf >90 (>60 ml/min/1.73 sqM) Glucose 88 (74-99) mg/dL Calcium 9.0 (8.4-10.2) mg/dL Magnesium 1.9 (1.6-2.3) mg/dL Total Bilirubin 0.2 (0.2-1.3) mg/dL AST 19 (14-36) U/L ALT 10 (4-34) U/L Alkaline Phosphatase 63 (38-126) U/L Troponin I (0.000-0.034) ng/mL Total Protein 7.0 (6.3-8.2) g/dL Albumin 4.1 (3.5-5.0) g/dL TSH 1.690 (0.465-4.680) mIU/L 02/29/20 Range/Units 14:24 WBC (3.8-10.6) k/uL RBC (3.80-5.40) m/uL Hgb (11.4-16.0) gm/dL Hct (34.0-46.0) % MCV (80.0-100.0) fL MCH (25.0-35.0) pg MCHC (31.0-37.0) g/dL RDW (11.5-15.5) % Plt Count (150-450) k/uL MPV Neutrophils % % Lymphocytes % % Monocytes % % Eosinophils % % Basophils % % Neutrophils # (1.3-7.7) k/uL Lymphocytes # (1.0-4.8) k/uL Monocytes # (0-1.0) k/uL Eosinophils # (0-0.7) k/uL Basophils # (0-0.2) k/uL Hypochromasia Microcytosis PT (9.0-12.0) sec INR (<1.2) APTT (22.0-30.0) sec D-Dimer (<0.60) mg/L FEU Sodium (137-145) mmol/L Potassium (3.5-5.1) mmol/L Chloride (98-107) mmol/L Carbon Dioxide (22-30) mmol/L Anion Gap mmol/L BUN (7-17) mg/dL Creatinine (0.52-1.04) mg/dL Est GFR (CKD-EPI)AfAm (>60 ml/min/1.73 sqM) Est GFR (CKD-EPI)NonAf (>60 ml/min/1.73 sqM) Glucose (74-99) mg/dL Calcium (8.4-10.2) mg/dL Magnesium (1.6-2.3) mg/dL Total Bilirubin (0.2-1.3) mg/dL AST (14-36) U/L ALT (4-34) U/L Alkaline Phosphatase (38-126) U/L Troponin I <0.012 (0.000-0.034) ng/mL Total Protein (6.3-8.2) g/dL Albumin (3.5-5.0) g/dL TSH (0.465-4.680) mIU/L Disposition Clinical Impression: Anemia, Palpitations Disposition: HOME SELF-CARE Condition: Stable Instructions (If sedation given, give patient instructions): Heart Palpitations (ED) Additional Instructions: Follow-up with her primary care physician regarding repeating lab work. Follow up with cardiology regarding your heart palpitations. Return to emergency department if symptoms worsen. Is patient prescribed a controlled substance at d/c from ED?: No Referrals: Bro Rodriguez DO [Primary Care Provider] - 1-2 days Angelika Moreno MD [STAFF PHYSICIAN] - 1-2 days Time of Disposition: 16:03
[2020-02-29 14:34] LABS: Basophils % (A) 1 %; Eosinophils # (A) 0.1 k/uL (0-0.7); Eosinophils % (A) 2 %; HCT 29.9 % (34.0-46.0); HGB 9.3 gm/dL (11.4-16.0); Hypochromasia Marked; Lymphocytes % (A) 18 %; MCH 23.4 pg (25.0-35.0); MCHC 31.2 g/dL (31.0-37.0); Microcytosis Slight; Monocytes # (A) 0.3 k/uL (0-1.0); Monocytes % (A) 5 %; Neutrophils # (A) 4.2 k/uL (1.3-7.7); Neutrophils % (A) 74 %; Platelet Count 292 k/uL (150-450); RBC 3.99 m/uL (3.80-5.40); RDW 14.9 % (11.5-15.5); WBC 5.7 k/uL (3.8-10.6)
[2020-02-29 14:48] LABS: ALT 10 U/L (4-34); AST 19 U/L (14-36); African American GFR (CKD) >90 (>60 ml/min/1.73 sqM); Albumin 4.1 g/dL (3.5-5.0); Alkaline Phosphatase 63 U/L (38-126); Anion Gap 5 mmol/L; Blood Urea Nitrogen 12 mg/dL (7-17); Carbon Dioxide 26 mmol/L (22-30); Chloride 107 mmol/L (98-107); Glucose 88 mg/dL (74-99); Magnesium 1.9 mg/dL (1.6-2.3); Non-African American GFR(CKD) >90 (>60 ml/min/1.73 sqM); Sodium 138 mmol/L (137-145); Total Bilirubin 0.2 mg/dL (0.2-1.3)
[2020-02-29 14:53] LABS: INR 0.9 (<1.2)
[2020-02-29 14:54] LABS: D-Dimer 0.26 mg/L FEU (<0.60); Prothrombin Time 9.9 sec (9.0-12.0)
--- NOTE | 2020-02-29 14:56 | XR ---
EXAMINATION TYPE: XR chest 2V DATE OF EXAM: 02/29/2020 COMPARISON: Chest x-ray August 02, 2018. HISTORY: Dysrhythmia. TECHNIQUE: Frontal and lateral views of the chest are obtained. FINDINGS: There is no suspicious new focal air space opacity, pleural effusion, or pneumothorax seen . The cardiac silhouette size remains within normal limits. The osseous structures are intact. IMPRESSION: No acute cardiopulmonary process. No significant change from prior.
[2020-02-29 15:02] LABS: Partial Thromboplastin Time 21.4 sec (22.0-30.0)
[2020-02-29 16:17] VITALS: BP 112/68; PULSE 68; RESP 18
== END 2020-02-29 16:11 | disposition home or self-care (01) ==
LOC: EC 13:37
DX: D64.9 Anemia, unspecified (principal); R00.2 Palpitations; F41.9 Anxiety disorder, unspecified; F32.9 Major depressive disorder, single episode, unspecified; Z79.899 Other long term (current) drug therapy; Z98.84 Bariatric surgery status
CPT/HCPCS: 36415; 71046; 80053; 83735; 84443; 84484; 85025; 85379; 85610; 85730; 93005; 99285

== ENCOUNTER 2020-03-02 19:32 | Emergency (ER) | payer BC ==
[2020-03-02] MEDS ORDERED: LORazepam 1 MG TAB PO STA (20:17)
[2020-03-02] MEDS ORDERED: LORazepam 2 MG/ML INJ IV STA (20:22)
--- NOTE | 2020-03-02 20:25 | ED ---
General Adult HPI - General Chief complaint: Psychiatric Symptoms Stated complaint: Mental Health/SOB Time Seen by Provider: 03/02/20 20:02 Source: patient Mode of arrival: ambulatory - History of Present Illness Initial comments: 34-year-old female with a past medical history of cholecystectomy, bariatric surgery, tubal ligation presents to the emergency room for possible panic attack. Patient reports she has been having issues with her ex-. Patient states that he had difficulties taking her child up from her house today and became upset with her. States that she had been talking to him on and off since 4 pm. Patient reports when she got home from work about 2 hours ago and said she started to have what she thinks is a panic attack. States she feels very anxious and is having her temperature breath. States her heart is feeling fluttery.Patient has no other complaints at this time including chest pain, abdominal pain, nausea or vomiting, headache, or visual changes. - Related Data Home Medications Medication Instructions Recorded Confirmed Escitalopram [Lexapro] 20 mg PO DAILY 08/02/18 03/02/20 Omeprazole 40 mg PO DAILY 08/02/18 03/02/20 LORazepam 0.5 mg PO DAILY PRN 02/29/20 03/02/20 QUEtiapine FUMARATE [SEROquel] 50 mg PO HS 02/29/20 03/02/20 Cholecalciferol [Vitamin D3 (25 1,000 unit PO DAILY 03/02/20 03/02/20 Mcg = 1000 Iu)] L.acidoph,Paracasei, B.lactis 1 cap PO DAILY 03/02/20 03/02/20 [Probiotic] buPROPion XL [Wellbutrin Xl] 150 mg PO BID 03/02/20 03/02/20 Allergies Allergy/AdvReac Type Severity Reaction Status Date / Time morphine Allergy Chest Pain Verified 03/02/20 21:14 Review of Systems ROS Statement: Those systems with pertinent positive or pertinent negative responses have been documented in the HPI. ROS Other: All systems not noted in ROS Statement are negative. Past Medical History Past Medical History: Asthma Additional Past Medical History / Comment(s): migraines, ([facility] problems with [facility]) History of Any Multi-Drug Resistant Organisms: None Reported Past Surgical History: Adenoidectomy, Bariatric Surgery, Cholecystectomy, Orthopedic Surgery, Tonsillectomy, Tubal Ligation Additional Past Surgical History / Comment(s): left knee arthroscopy, rectal vaginal fistula repair, spincteroplasty, lap band inserted in 2007 and removed in Mar 2015 when gastric sleeve performed Past Anesthesia/Blood Transfusion Reactions: Family History of Problems w/ Anesthesia Additional Past Anesthesia/Blood Transfusion Reaction / Comment(s): father and s ister-diff coming out and high fever Past Psychological History: Anxiety, Depression Past Alcohol Use History: Occasional Past Drug Use History: None Reported - Past Family History Mother Family Medical History: No Reported History Additional Family Medical History / Comment(s): Mother has history of hypertension. Father Family Medical History: No Reported History Additional Family Medical History / Comment(s): Father has history of coronary artery disease status post CABG and [place] involving the LAD in his 50s. General Exam General appearance: alert, anxious Head exam: Present: atraumatic Eye exam: Present: normal appearance, PERRL, EOMI. Absent: scleral icterus ENT exam: Present: normal exam, mucous membranes moist Neck exam: Present: normal inspection, full ROM Respiratory exam: Present: normal lung sounds bilaterally. Absent: respiratory distress Cardiovascular Exam: Present: regular rate, normal rhythm, normal heart sounds Neurological exam: Present: alert Psychiatric exam: Present: anxious Course Vital Signs 03/02/20 19:50 Temperature 98.5 F Pulse Rate 104 H Respiratory 19 Rate Blood Pressure 130/73 O2 Sat by Pulse 95 Oximetry EKG Findings - EKG Comments: EKG Findings:: Normal sinus rhythm, ventricular rate 82, Pt int 48, QTC 450 Medical Decision Making - Medical Decision Making Vitals are stable. Patient was initially anxious and crying and had trouble catching her breath. She was given Ativan which markedly improved her symptoms. However work up was initiated. EKG was nonischemic. CBC did reveal microcytic anemia with hemoglobin of 9.1. Patient denies noticing any bleeding will follow up with her primary care doctor for this. CMP is unremarkable. Troponin negative. Chest x-ray shows no acute process patient reevaluated. Patient denying thoughts of harming herself or anyone else. Denies thoughts of suicide. I did offer psychiatric consultation here however patient states she has her own psychiatrist and will follow-up with her tomorrow morning. She is agreeable to returning here for any worsening symptoms. Patient does have fiance at bedside that can take her home. - Lab Data Result diagrams: 03/02/20 20:25 03/02/20 20:25 Lab Results 03/02/20 03/02/20 03/02/20 Range/Units 20:25 20:25 20:25 WBC 6.4 (3.8-10.6) k/uL RBC 4.03 (3.80-5.40) m/uL Hgb 9.1 L (11.4-16.0) gm/dL Hct 30.2 L (34.0-46.0) % MCV 75.0 L (80.0-100.0) fL MCH 22.5 L (25.0-35.0) pg MCHC 30.0 L (31.0-37.0) g/dL RDW 15.0 (11.5-15.5) % Plt Count 294 (150-450) k/uL MPV 6.7 Neutrophils % 69 % Lymphocytes % 21 % Monocytes % 6 % Eosinophils % 2 % Basophils % 0 % Neutrophils # 4.4 (1.3-7.7) k/uL Lymphocytes # 1.3 (1.0-4.8) k/uL Monocytes # 0.4 (0-1.0) k/uL Eosinophils # 0.1 (0-0.7) k/uL Basophils # 0.0 (0-0.2) k/uL Hypochromasia Marked Microcytosis Slight Sodium 140 (137-145) mmol/L Potassium 4.2 (3.5-5.1) mmol/L Chloride 110 H (98-107) mmol/L Carbon Dioxide 21 L (22-30) mmol/L Anion Gap 9 mmol/L BUN 15 (7-17) mg/dL Creatinine 0.83 (0.52-1.04) mg/dL Est GFR (CKD-EPI)AfAm >90 (>60 ml/min/1.73 sqM) Est GFR (CKD-EPI)NonAf >90 (>60 ml/min/1.73 sqM) Glucose 84 (74-99) mg/dL Calcium 9.4 (8.4-10.2) mg/dL Troponin I <0.012 (0.000-0.034) ng/mL Disposition Clinical Impression: Acute anxiety, Anemia Disposition: HOME SELF-CARE Condition: Good Instructions (If sedation given, give patient instructions): Anemia (ED), Generalized Anxiety Disorder (ED) Additional Instructions: Please follow up with primary care to discuss anemia. Please follow-up with your psychiatrist as well. Return to the emergency department for any worsening symptoms. Is patient prescribed a controlled substance at d/c from ED?: No Referrals: Bro Rodriguez DO [Primary Care Provider] - 1-2 days Time of Disposition: 21:53
[2020-03-02 21:12] LABS: Basophils % (A) 0 %; Eosinophils # (A) 0.1 k/uL (0-0.7); Eosinophils % (A) 2 %; HCT 30.2 % (34.0-46.0); HGB 9.1 gm/dL (11.4-16.0); Hypochromasia Marked; Lymphocytes # (A) 1.3 k/uL (1.0-4.8); Lymphocytes % (A) 21 %; MCH 22.5 pg (25.0-35.0); Mean Platelet Volume 6.7; Microcytosis Slight; Monocytes # (A) 0.4 k/uL (0-1.0); Monocytes % (A) 6 %; Neutrophils # (A) 4.4 k/uL (1.3-7.7); Neutrophils % (A) 69 %; Platelet Count 294 k/uL (150-450); RBC 4.03 m/uL (3.80-5.40); WBC 6.4 k/uL (3.8-10.6)
--- NOTE | 2020-03-02 21:18 | XR ---
EXAMINATION TYPE: XR chest 1V portable DATE OF EXAM: 03/02/2020 COMPARISON: 02/29/2020. HISTORY: Shortness of breath. TECHNIQUE: Single frontal view of the chest is obtained. FINDINGS: There is no focal air space opacity, pleural effusion, or pneumothorax seen. The cardiac silhouette size is within normal limits. The osseous structures are intact. IMPRESSION: No acute process.
[2020-03-02 21:25] LABS: African American GFR (CKD) >90 (>60 ml/min/1.73 sqM); Anion Gap 9 mmol/L; Blood Urea Nitrogen 15 mg/dL (7-17); Calcium 9.4 mg/dL (8.4-10.2); Carbon Dioxide 21 mmol/L (22-30); Chloride 110 mmol/L (98-107); Glucose 84 mg/dL (74-99); Non-African American GFR(CKD) >90 (>60 ml/min/1.73 sqM); Potassium 4.2 mmol/L (3.5-5.1); Sodium 140 mmol/L (137-145)
[2020-03-02 22:05] VITALS: BP 107/84; PULSE 82; RESP 22; TEMP 97
== END 2020-03-02 22:04 | disposition home or self-care (01) ==
LOC: EC 19:32
DX: F41.9 Anxiety disorder, unspecified (principal); D50.9 Iron deficiency anemia, unspecified; F32.9 Major depressive disorder, single episode, unspecified; Z88.5 Allergy status to narcotic agent; Z79.899 Other long term (current) drug therapy; Z90.49 Acquired absence of other specified parts of digestive tract
CPT/HCPCS: 36415; 93005; 80048; 84484; 85025; 71045; 99284; 96374; J2060

== ENCOUNTER 2020-03-31 09:52 | Day surgery (SDC) | payer BC ==
[2020-03-29 11:48] VITALS: BMI 29.2
[~2020-03-31 09:52] MED LIST changes: -DEXAMETHASONE SOD PHOSPHATE 10 MG/ML 1 ML VIAL IV ONE; -HYDROmorphone 0.5 MG/0.5 ML SYRINGE IVP PRN; -LIDOCAINE 1% 20 ML VIAL (10MG/ML) FOR IV START INTRADERMA PRN; -MIDAZOLAM 2 MG/2 ML VIAL IV PRN; -ONDANSETRON 4 MG/2 ML VIAL IVP ONE; -Pre Op ABX Message 1 EACH MISC MISCELLANE ONE; -SCOPOLAMINE 1.5MG/72HR PATCH TRANSDERM ONE
[2020-03-31 10:40] VITALS: RESP 16; TEMP 98.1
[2020-03-31] MEDS ORDERED: LACTATED RINGERS 1,000 ML IV ONE ×2 (10:45)
[2020-03-31] MEDS ORDERED: MIDAZOLAM 2 MG/2 ML VIAL ONE (11:21)
[2020-03-31] MEDS ORDERED: PROPOFOL 10 MG/ML 20 ML VIAL IV ONE (11:21)
[2020-03-31] MEDS ORDERED: fentaNYL (PF) 50 MCG/ML 2 ML AMP ONE (11:21)
[2020-03-31] MEDS ORDERED: LIDOCAINE 1% INJ 10MG/ML (20 ML MDV) ONE (11:21)
--- NOTE | 2020-03-31 11:25 | P.GSHP ---
History of Present Illness H&P Date: 03/31/20 Chief Complaint: Anemia, GI bleed This a 34-year-old female undergoing workup for GI bleed/anemia. Patient's hemoglobins in the nines. She denies any dysmenorrhea. She's had a uterine ablation. Past Medical History Past Medical History: Asthma, GERD/Reflux Additional Past Medical History / Comment(s): migraines, ([facility] , past hx gestational diabetes-no problems since, anemia History of Any Multi-Drug Resistant Organisms: None Reported Past Surgical History: Adenoidectomy, Bariatric Surgery, Breast Surgery, Cholecystectomy, Orthopedic Surgery, Tonsillectomy, Tubal Ligation, Uterine Ablation Additional Past Surgical History / Comment(s): left knee arthroscopy, rectal vaginal fistula repair, spincteroplasty, lap band inserted in 2007 and removed in Mar 2015 when gastric sleeve performed , sharlene breast reduction, liposuction, tummy tuck Past Anesthesia/Blood Transfusion Reactions: Family History of Problems w/ Anesthesia, Motion Sickness Additional Past Anesthesia/Blood Transfusion Reaction / Comment(s): father and sister-diff coming out, PONV (denies fever) Smoking Status: Former smoker - Past Family History Mother Family Medical History: No Reported History Additional Family Medical History / Comment(s): Mother has history of hypertension. Father Family Medical History: No Reported History Additional Family Medical History / Comment(s): Father has history of coronary artery disease status post CABG and OR involving the LAD in his 50s. Sister(s) Family Medical History: Cancer Medications and Allergies Home Medications Medication Instructions Recorded Confirmed Type Escitalopram [Lexapro] 20 mg PO DAILY 08/02/18 03/31/20 History Omeprazole 40 mg PO DAILY 08/02/18 03/31/20 History LORazepam 0.5 - 1 mg PO DAILY PRN 02/29/20 03/31/20 History QUEtiapine FUMARATE [SEROquel] 50 mg PO HS 02/29/20 03/31/20 History Cholecalciferol [Vitamin D3 (25 1,000 unit PO DAILY 03/02/20 03/31/20 History Mcg = 1000 Iu)] L.acidoph,Paracasei, B.lactis 1 cap PO DAILY 03/02/20 03/31/20 History [Probiotic] buPROPion XL [Wellbutrin Xl] 300 mg PO QAM 03/02/20 03/31/20 History Iron(Dose Unknown) 1 tab PO DAILY 03/29/20 03/31/20 History Allergies Allergy/AdvReac Type Severity Reaction Status Date / Time morphine Allergy Chest Pain Verified 03/31/20 10:44 Surgical - Exam Vital Signs Temp Pulse Resp BP Pulse Ox 98.1 F 67 16 106/70 100 03/31/20 10:39 03/31/20 10:39 03/31/20 10:39 03/31/20 10:39 03/31/20 10:39 - General well developed, well nourished, no distress - Eyes PERRL - ENT normal pinna - Neck no masses - Respiratory normal expansion - Cardiovascular Rhythm: regular - Abdomen Abdomen: soft, non tender Assessment and Plan Assessment: Anemia. Patient will undergo GI workup. Upper and lower endoscopy today
--- NOTE | 2020-03-31 11:42 | P.OP ---
Date of Procedure: 03/31/20 Preoperative Diagnosis: Anemia Postoperative Diagnosis: Mild antral gastritis Procedure(s) Performed: EGD Colonoscopy Anesthesia: MAC Surgeon: Jason Hills Pathology: other (Antrum, esophagus) Condition: stable Disposition: PACU Description of Procedure: The patient was placed on the endoscopy table in the lateral position she received IV sedation. The gastroscope placed oropharynx and passed into the esophagus into the stomach. The patient a previous sleeve gastrectomy. There is known some obstruction of her sleeve. The scope was then placed through the pylorus. The first and second portion of the duodenum appeared normal. The scope was then brought back and the antrum and this was minimal inflamed. A biopsies performed. The scope was then withdrawn and the gastric sleeve appeared to be moderately dilated. The GE junction was at 40 cm. The distal esophagus was minimal inflamed a biopsies performed. The proximal esophagus appeared normal. There is no evidence of any upper GI bleed. Next digital rectal exam was performed which revealed no abnormalities. The flexible colonoscope was then placed patient anus and passed throughout the entire colon. The ileocecal valve was visualized. The cecum, ascending and transverse colon appeared normal. The descending and sigmoid colon appeared normal. The scope was then brought back the rectum this appeared normal. Scope withdrawn for patient. There is no evidence of any lower GI bleed. The patient should have blood work drawn to rule out vitamin deficiency for her anemia
[2020-03-31 11:46] VITALS: PULSE 69
[2020-03-31 12:02] VITALS: BP 102/69
== END 2020-03-31 12:32 | disposition home or self-care (01) ==
LOC: ORWHC2ENDO 09:52
PROVIDERS: ATTEND Surgery
DX: K29.50 Unspecified chronic gastritis without bleeding (principal); K21.00 Gastro-esophageal reflux disease with esophagitis, without bleeding; D50.9 Iron deficiency anemia, unspecified; J45.909 Unspecified asthma, uncomplicated; G43.909 Migraine, unspecified, not intractable, without status migrainosus; Z88.5 Allergy status to narcotic agent; Z79.899 Other long term (current) drug therapy; Z87.891 Personal history of nicotine dependence; Z82.49 Family history of ischemic heart disease and other diseases of the circulatory system; Z98.84 Bariatric surgery status; Z90.49 Acquired absence of other specified parts of digestive tract; Z98.51 Tubal ligation status; Z90.89 Acquired absence of other organs; Z98.890 Other specified postprocedural states; Z80.9 Family history of malignant neoplasm, unspecified
CPT/HCPCS: 81025; 88305; 45378; 43239; J2250; J2001; J3010; J2704

== ENCOUNTER → 2020-04-08 | Outpatient (CLI) | payer BC ==
--- NOTE | 2020-04-08 11:21 | MM ---
Reason for exam: screening (asymptomatic). Baseline mammogram. Physical Findings: Nurse did not find any significant physical abnormalities on exam. MG 3D Screening Mammo W/Cad Bilateral CC and MLO view(s) were taken. The breast tissue is heterogeneously dense. This may lower the sensitivity of mammography. No significant findings. These results were verbally communicated with the patient and result sheet given to the patient on 04/08/20. ASSESSMENT: Benign, BI-RAD 2 RECOMMENDATION: Routine screening mammogram of both breasts at age 38.
== END | disposition home or self-care (01) ==
LOC: RADMAMWWP 10:12
PROVIDERS: ATTEND Obstetrics & Gynecology
DX: Z12.31 Encounter for screening mammogram for malignant neoplasm of breast (principal)
CPT/HCPCS: 77063; 77067

== ENCOUNTER 2020-07-10 08:03 | Emergency (ER) | payer BC ==
[2020-07-10 08:14] VITALS: BP 107/64; PULSE 78; RESP 18; TEMP 98.3
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
--- NOTE | 2020-07-10 08:36 | XR ---
EXAMINATION TYPE: XR hand complete LT DATE OF EXAM: 07/10/2020 CLINICAL HISTORY: Fall injury with pain worse over fourth and fifth digits. TECHNIQUE: Frontal, lateral and oblique images of the left hand are obtained. COMPARISON: None. FINDINGS: There is no acute fracture/dislocation evident in the left hand worse over fourth and fift h fingers. The joint spaces in the left hand appear within normal limits. The overlying soft tissue appears unremarkable. IMPRESSION: There is no acute fracture or dislocation in the left hand.
== END 2020-07-10 09:09 | disposition home or self-care (01) ==
LOC: EC 08:03
DX: S63.635A Sprain of interphalangeal joint of left ring finger, initial encounter (principal); S63.637A Sprain of interphalangeal joint of left little finger, initial encounter; J45.909 Unspecified asthma, uncomplicated; G43.909 Migraine, unspecified, not intractable, without status migrainosus; F41.9 Anxiety disorder, unspecified; F32.9 Major depressive disorder, single episode, unspecified; F17.200 Nicotine dependence, unspecified, uncomplicated; W23.1XXA Caught, crushed, jammed, or pinched between stationary objects, initial encounter
CPT/HCPCS: 29125; 99283

== ENCOUNTER → 2021-05-10 | Outpatient (CLI) | payer BC ==
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
== END | disposition home or self-care (01) ==
LOC: RADXRMAIN 11:27
PROVIDERS: ATTEND Pediatrics
DX: S99.921A Unspecified injury of right foot, initial encounter (principal); X58.XXXA Exposure to other specified factors, initial encounter

== ENCOUNTER → 2023-06-11 | Outpatient (CLI) | payer MEDICAID ==
--- NOTE | 2023-06-12 21:41 | MM ---
Reason for Exam: Screening (asymptomatic). Last mammogram was performed 3 year(s) and 2 month(s) ago. Patient History: Menarche at age 10. First Full-Term at age 22. Premenopausal. 2021, Bilateral Reduction. Sister had breast cancer, age 47. Sister tested for BRCA2 outcome was negative. Risk Values: Marilee 5 year model risk: 1.1%. NCI Lifetime model risk: 18.3%. Prior Study Comparison: 04/08/2020 Bilateral Screening Mammogram, [facility]. Tissue Density: The breasts are heterogeneously dense, which may obscure small masses. Findings: Analyzed By CAD. Multiple bilateral areas of asymmetric density are unchanged. There is no suspicious group of microcalcifications or new suspicious mass in either breast. Overall Assessment: Benign, BI-RAD 2 Management: Screening Mammogram of both breasts in 1 year. . Patient should continue monthly self-breast exams. A clinical breast exam by your physician is recommended on an annual basis. This exam should not preclude additional follow-up of suspicious palpable abnormalities. Note on Marilee scores and lifetime risk: 1. A Marilee score greater than 3% is considered moderate risk. If this is the case, consider specialist referral to assess eligibility for a risk reducing agent. 2. If overall lifetime risk for the development of breast cancer is 20% or higher, the patient may qualify for future screening with alternating mammogram and breast MRI. Electronically signed and approved by: Usha Goss M.D. Radiologist
== END | disposition home or self-care (01) ==
LOC: RADMAMWWP 07:25
PROVIDERS: ATTEND Family Medicine
DX: Z12.31 Encounter for screening mammogram for malignant neoplasm of breast (principal); Z80.3 Family history of malignant neoplasm of breast
CPT/HCPCS: 77063; 77067